=== PATIENT | female | born 1950 | race Caucasian/White ===

== ENCOUNTER 2016-07-31 09:43 | Outpatient (CLI) | payer MEDICARE, OTHER | END 2016-07-31 09:44 | disposition home or self-care (01) | DX: E11.9 Type 2 diabetes mellitus without complications (principal); D70.9 Neutropenia, unspecified; I10 Essential (primary) hypertension; E78.4 Other hyperlipidemia; N28.9 Disorder of kidney and ureter, unspecified; N05.9 Unspecified nephritic syndrome with unspecified morphologic changes; R80.9 Proteinuria, unspecified ==

== ENCOUNTER 2016-10-31 19:53 | Outpatient (CLI) | payer MEDICARE, OTHER | END 2016-10-31 19:54 | disposition home or self-care (01) | DX: N26.1 Atrophy of kidney (terminal) (principal) ==

== ENCOUNTER 2017-01-12 12:59 | Outpatient (CLI) | payer MEDICARE, OTHER ==
--- NOTE | 2017-01-15 17:59 | Mammography Report ---
DIGITAL SCREENING MAMMOGRAM: 01/12/2017 CLINICAL INDICATION: A 66-year-old for screening. COMPARISON: 08/2015, 02/2014, 01/2013, 11/2010 TECHNIQUE: Routine CC and MLO projections were obtained of the breasts. FINDINGS: The breasts again demonstrate heterogeneously dense fibroglandular parenchyma bilaterally. Coarse and punctate, typically benign calcifications are present. No suspicious masses, clustered microcalcifications, or regions of architectural distortion are identified. IMPRESSION: BENIGN FINDINGS. RECOMMENDATION: Routine annual screening unless otherwise clinically indicated. BIRADS CATEGORY 2 - BENIGN FINDINGS. STANDARD QUALIFYING STATEMENTS 1. This examination was reviewed with the aid of Computer-Aided Detection (CAD). 2. A negative or benign imaging report should not delay biopsy if clinically suspicious findings are present. Consider surgical consultation if warranted. More than 5% of cancers are not identified by i maging. 3. Dense breasts may obscure an underlying neoplasm. JOB #: [id number] EXT JOB #:[id number]
== END 2017-01-12 13:00 | disposition home or self-care (01) ==
LOC: DI 12:59
PROVIDERS: ATTEND Internal Medicine
DX: Z12.31 Encounter for screening mammogram for malignant neoplasm of breast (principal)
CPT/HCPCS: 77067

== ENCOUNTER 2017-05-22 10:21 | Outpatient (CLI) | payer MEDICARE, OTHER ==
[2017-05-22 18:05] LABS: BILIRUBIN,TOTAL 0.3 mg/dL (0.2-1.0); BUN - BLOOD UREA NITROGEN 26 mg/dL (6-20); CALCIUM 8.9 mg/dL (8.5-10.3); CARBON DIOXIDE - CO2 27 mmol/L (21-32); CHLORIDE 107 mmol/L (101-111); CHOL/HDL RATIO 3.4 (<4.4); CHOLESTEROL 146 mg/dL; CREATININE 1.3 mg/dL (0.4-1.0); GFR - MDRD 41 (>89); GLUCOSE 128 mg/dL (70-100); HDL CHOLESTEROL 43 mg/dL; LDL/HDL RATIO 1.8 (<4.4); POTASSIUM 4.2 mmol/L (3.5-5.0); SODIUM 140 mmol/L (135-145); TOTAL PROTEIN 6.8 g/dL (6.7-8.2); TRIGLYCERIDES 119 mg/dL; VLDL CHOLESTEROL 24 mg/dL
[2017-05-22 19:22] LABS: HEMOGLOBIN A1C 0.61 g/dL
== END 2017-05-22 10:22 | disposition home or self-care (01) ==
LOC: LAB.F 10:21
PROVIDERS: ATTEND Internal Medicine Interventional Cardiology
DX: E11.9 Type 2 diabetes mellitus without complications (principal); I25.2 Old myocardial infarction; E78.5 Hyperlipidemia, unspecified; E66.9 Obesity, unspecified; Z87.891 Personal history of nicotine dependence; N18.3 Chronic kidney disease, stage 3 (moderate); E78.4 Other hyperlipidemia; Z79.899 Other long term (current) drug therapy; I25.5 Ischemic cardiomyopathy; I12.9 Hypertensive chronic kidney disease with stage 1 through stage 4 chronic kidney disease, or unspecified chronic kidney disease
CPT/HCPCS: 36415; 80053; 80061; 82043; 83036

== ENCOUNTER 2017-10-19 12:27 | Emergency (ER) | payer MEDICARE, OTHER ==
--- NOTE | 2017-10-19 12:56 | ED Physician Documentation ---
History of Present Illness - Stated complaint Stated Complaint: ABN HEARTRATE - Chief complaint Chief Complaint: Cardiac - History obtained from History obtained from: Patient, Family (spouse), Other (PMD) - Additonal information Additional information: The patient is a 67-year-old female with history of type 2 diabetes, coronary artery disease with history of DC in 1997, and status post coronary stents 2, who presents for evaluation of ventricular bigeminy. 11 days ago while on vacation in [place] she was hospitalized for congestive heart failure. 4 days later, after being diuresed, she left AGAINST MEDICAL ADVICE in order to catch her prescheduled train ride home. She was seen by her primary physician this morning, and an EKG revealed ventricular bigeminy. The patient has been asymptomatic, without chest pain, shortness of breath, or lightheadedness. She denies history of similar symptoms in the past. Review of Systems Constitutional: denies: Fever Ears: denies: Tinnitus/ringing Nose: denies: Congestion Throat: denies: Sore throat Cardiac: denies: Chest pain / pressure Respiratory: denies: Dyspnea, Cough GI: denies: Abdominal Pain, Nausea, Vomiting : denies: Dysuria Skin: denies: Rash Musculoskeletal: denies: Extremity pain, Extremity swelling Neurologic: denies: Generalized weakness, Headache PD PAST MEDICAL HISTORY - Past Medical History Cardiovascular: Congestive heart failure, [place] Respiratory: None Endocrine/Autoimmune: Type 2 diabetes - Past Surgical History Cardiovascular: Coronary stent - Present Medications Home Medications: Ambulatory Orders Medication Instructions Recorded Confirmed Aspirin Chewable [St Tera 81 mg PO BID 01/06/14 04/25/16 Aspirin] Calcium Carbonate [Calcium] 1,200 mg PO DAILY 01/06/14 04/25/16 Carvedilol 12.5 mg PO BID 01/06/14 04/25/16 Cholecalciferol (Vitamin D3) 1,000 unit PO DAILY 01/06/14 04/25/16 [Vitamin D-3] Cyanocobalamin (Vitamin B-12) 1,000 mcg PO DAILY 01/06/14 04/25/16 [Vitamin B-12] Iron 65 mg PO DAILY 01/06/14 04/25/16 Lisinopril 20 mg PO BID 01/06/14 04/25/16 Metformin HCl 500 mg PO DAILY 01/06/14 04/25/16 Pravastatin Sodium 40 mg PO DAILY 01/06/14 04/25/16 glipiZIDE [Glucotrol] 5 mg PO DAILY 01/06/14 04/25/16 Colesevelam HCl [Welchol] 6 tab PO DAILY 04/14/14 04/25/16 Canagliflozin [Invokana] 100 mg PO DAILY 04/27/15 04/25/16 Colesevelam HCl [Welchol] 0.5 packet PO ONCE 04/25/16 04/25/16 - Allergies Allergies/Adverse Reactions: Allergies Allergy/AdvReac Type Severity Reaction Status Date / Time amoxicillin [Amoxicillin] Allergy Unknown Headache Unverified 10/19/17 12:41 amoxapine [Amoxapine] Allergy Headache Unverified 10/19/17 12:41 - Living Situation Living Situation: reports: With spouse/s.o. Living Arrangement: reports: At home - Social History Does the pt smoke?: No PD ED PE NORMAL - Vitals Vital signs reviewed: Yes (systolic hypertension) - General General: Alert and oriented X 3, Well developed/nourished - HEENT HEENT: Atraumatic, Moist mucous membranes, Pharynx benign - Neck Neck: No adenopathy, No JVD - Cardiac Cardiac: Other (ventricular bigeminy on reading interventionist. Faint, 1/6 systolic murmur.) - Respiratory Respiratory: No respiratory distress, Clear bilaterally - Abdomen Abdomen: Soft, Non tender - Back Back: No CVA TTP - Derm Derm: No rash - Extremities Extremities: No calf tenderness / cord, Other (Trace pedal edema.) - Neuro Neuro: Alert and oriented X 3, No motor deficit, Normal speech Results - Vitals Vitals: Vital Signs - 24 hr 10/19/17 10/19/17 10/19/17 12:38 12:48 14:02 Temperature 36.4 C L Heart Rate 89 97 Respiratory 22 23 Rate Blood Pressure 158/68 H 138/95 H Blood Pressure 150/66 H [Left] Blood Pressure 151/81 H [Right] O2 Saturation 97 96 10/19/17 10/19/17 14:27 14:42 Temperature Heart Rate 74 88 Respiratory 20 16 Rate Blood Pressure 148/68 H 146/68 H Blood Pressure [Left] Blood Pressure [Right] O2 Saturation 96 96 Oxygen O2 Source Room air - EKG (time done) 12:37 Rate: Rate (enter#) (90) Rhythm: LAE, Other (Ventricular bigeminy) [place]: Normal Ischemia: T wave inversion (Diffuse T-wave inversions: II, III, aVF, V3-V6.) Compare to prior EKG: Old EKG unavailable - Labs Labs: Laboratory Tests 10/19/17 10/19/17 10/19/17 12:34 12:34 12:34 WBC 5.1 RBC 3.93 L Hgb 12.7 Hct 37.6 MCV 95.5 MCH 32.2 H MCHC 33.7 RDW 15.0 Plt Count 212 MPV 8.5 Neut # 3.1 Lymph # 1.1 L Jack # 0.6 Eos # 0.3 Baso # 0.0 Absolute Nucleated RBC 0.00 Nucleated RBC % 0.1 Sodium 141 Potassium 4.3 Chloride 106 Carbon Dioxide 29 Anion Gap 6.0 BUN 28 H Creatinine 1.2 H Estimated GFR (MDRD) 45 L Glucose 91 Calcium 9.9 Magnesium Total Bilirubin 0.4 AST 19 ALT 18 Alkaline Phosphatase 44 Troponin I 0.04 B-Natriuretic Peptide Total Protein 7.2 Albumin 3.5 Globulin 3.7 Albumin/Globulin Ratio 0.9 L Lipase 43 10/19/17 10/19/17 12:34 12:34 WBC RBC Hgb Hct MCV MCH MCHC RDW Plt Count MPV Neut # Lymph # Jack # Eos # Baso # Absolute Nucleated RBC Nucleated RBC % Sodium Potassium Chloride Carbon Dioxide Anion Gap BUN Creatinine Estimated GFR (MDRD) Glucose Calcium Magnesium 1.8 Total Bilirubin AST ALT Alkaline Phosphatase Troponin I B-Natriuretic Peptide 1111 H Total Protein Albumin Globulin Albumin/Globulin Ratio Lipase - Rads (name of study) CXR Radiology: Prelim report reviewed, EMP read contemporaneously, See rad report ( Large heart. Clear lungs.) PD MEDICAL DECISION MAKING - ED course Complexity details: reviewed old records, reviewed results, re-evaluated patient , considered differential, d/w patient, d/w family, d/w business solutions consultant ED course: The patient's presentation is significant for asymptomatic ventricular bigeminy. Lab results reveal normal electrolytes with a potassium of 4.3 and magnesium 1.8. Her troponin is normal at less than 0.04. BNP is elevated at 1111, but the patient denies shortness of breath, has no JVD, has no rales on auscultation, has trace pedal edema which is far improved from when she was hospitalized with congestive heart failure, and chest x-ray reveals clear lungs. Clinically, she does not appear to be in congestive heart failure. I discussed her condition with Dr. Soler, child welfare manager cotton breeder for Dr. Garvin, and he recommends scheduling outpatient follow-up with Dr. Garvin. I contacted the scheduling office, and the patient was given an appointment for next week, October 25 at 10 AM. Records from the hospital in [place] were requested, but were not received by the time of the patient's discharge. I discussed with her and her the results of her workup, the discussion with the child welfare manager, the outpatient follow-up appointment, as well as potentially worrisome signs or symptoms that should prompt reevaluation in the emergency department. Departure - Departure Disposition: 01 Home, Self Care Clinical Impression: Ventricular bigeminy Condition: Stable Instructions: ED Dysrhythmia Unspecified Follow-Up: Keli Alaniz MD [Primary Care Provider] - [facility] - Card [Provider Group] Comments: Continue your currently prescribed medications. Follow up with Dr. Garvin at his next available appointment. Return to the emergency department if you develop chest pain, shortness of breath, lightheadedness, or otherwise worsening symptoms. Discharge Date/Time: 10/19/17 14:42
[2017-10-19 13:08] LABS: BASOPHILS % (AUTO) 0.7 %; EOSINOPHILS # (AUTO) 0.3 10^3/uL (0.0-0.7); EOSINOPHILS % (AUTO) 6.6 %; HGB - HEMOGLOBIN 12.7 g/dL (12.0-16.0); LYMPHOCYTES # (AUTO) 1.1 10^3/uL (1.5-3.5); LYMPHOCYTES % (AUTO) 20.9 %; MEAN CORPUSCULAR HEMOGLOBIN 32.2 pg (27.0-31.0); MEAN CORPUSCULAR HGB CONC 33.7 g/dL (32.0-36.0); MEAN CORPUSCULAR VOLUME 95.5 fL (81.0-99.0); MEAN PLATELET VOLUME 8.5 fL (7.9-10.8); MONOCYTES # (AUTO) 0.6 10^3/uL (0.0-1.0); MONOCYTES % (AUTO) 11.7 %; NEUTROPHILS # (AUTO) 3.1 10^3/uL (1.5-6.6); NEUTROPHILS % (AUTO) 60.1 %; PLT - PLATELET COUNT 212 10^3/uL (130-450); RED BLOOD COUNT 3.93 10^6/uL (4.20-5.40); WHITE BLOOD COUNT 5.1 x10^3/uL (4.8-10.8)
[2017-10-19 13:17] LABS: ALBUMIN 3.5 g/dL (3.2-5.5); ALBUMIN/GLOBULIN RATIO 0.9 (1.0-2.2); BILIRUBIN,TOTAL 0.4 mg/dL (0.2-1.0); CALCIUM 9.9 mg/dL (8.5-10.3); CREATININE 1.2 mg/dL (0.4-1.0); TOTAL PROTEIN 7.2 g/dL (6.7-8.2)
--- NOTE | 2017-10-19 13:26 | XRAY Report ---
EXAM: CHEST RADIOGRAPHY EXAM DATE: 10/19/2017 01:20 PM. CLINICAL HISTORY: Bigeminy; recent hospitalization for CHF. COMPARISON: None. TECHNIQUE: 1 view. FINDINGS: Lungs/Pleura: No focal opacities evident. No pleural effusion. No pneumothorax. Mediastinum: Large chart some of which is due to the AP portable technique. Other: None. IMPRESSION: Large heart. Clear lungs. [facility] Referring Provider Line: [phone] SITE ID: [id number]
[2017-10-19 14:45] VITALS: BP 146/68
== END 2017-10-19 14:42 | disposition home or self-care (01) ==
LOC: ED 12:27
DX: I49.3 Ventricular premature depolarization (principal); I50.9 Heart failure, unspecified; I25.2 Old myocardial infarction; E11.9 Type 2 diabetes mellitus without complications; Z79.82 Long term (current) use of aspirin; Z79.84 Long term (current) use of oral hypoglycemic drugs
CPT/HCPCS: 36415; 71045; 80053; 83690; 83735; 83880; 84484; 85025; 93005; 99284

== ENCOUNTER 2017-11-26 08:53 | Outpatient (CLI) | payer MEDICARE, OTHER ==
[2017-11-26 12:10] LABS: CALCIUM 8.4 mg/dL (8.5-10.3); CREATININE 1.7 mg/dL (0.4-1.0); MAGNESIUM 2.2 mg/dL (1.7-2.8)
== END 2017-11-26 08:54 | disposition home or self-care (01) ==
LOC: LAB.F 08:53
PROVIDERS: ATTEND Internal Medicine
DX: E11.9 Type 2 diabetes mellitus without complications (principal); I10 Essential (primary) hypertension; E78.4 Other hyperlipidemia
CPT/HCPCS: 36415; 80048; 83735; 83880; 84443

== ENCOUNTER 2018-05-09 11:59 | Outpatient (CLI) | payer MEDICARE, OTHER ==
[2018-05-09 18:24] LABS: BUN - BLOOD UREA NITROGEN 65 mg/dL (6-20); CALCIUM 9.3 mg/dL (8.5-10.3); CARBON DIOXIDE - CO2 30 mmol/L (21-32); CHLORIDE 99 mmol/L (101-111); CHOL/HDL RATIO 3.8 (<4.4); CHOLESTEROL 160 mg/dL; CREATININE 2.2 mg/dL (0.4-1.0); GFR - MDRD 22 (>89); GLUCOSE 133 mg/dL (70-100); HDL CHOLESTEROL 42 mg/dL; LDL CHOLESTEROL,CALCULATED 81 mg/dL; LDL/HDL RATIO 1.9 (<4.4); SODIUM 139 mmol/L (135-145); VLDL CHOLESTEROL 37 mg/dL
== END 2018-05-09 23:59 | disposition home or self-care (01) ==
LOC: LAB.F 11:59
PROVIDERS: ATTEND Internal Medicine Interventional Cardiology
DX: I10 Essential (primary) hypertension (principal); I50.42 Chronic combined systolic (congestive) and diastolic (congestive) heart failure; I25.2 Old myocardial infarction; E11.9 Type 2 diabetes mellitus without complications
CPT/HCPCS: 36415; 80048; 80061; 83721; 83880

== ENCOUNTER 2018-05-09 20:29 | Emergency (ER) | payer MEDICARE, OTHER ==
[2018-05-09 20:36] VITALS: BP 129/68
--- NOTE | 2018-05-09 20:45 | ED Physician Documentation ---
PD HPI LOWER EXT INJURY - Stated complaint Stated Complaint: FALL/STAIRS - Chief complaint Chief Complaint: Ext Problem - History obtained from History obtained from: Patient, Family - History of Present Illness PD HPI LOW EXT INJURY LOCATION: Left, Ankle Type of injury: Fall Where injury occurred: Home Timing - onset: Today Timing - duration: Minutes Timing - details: Abrupt onset, Still present Improved by: Rest, Immobilization Worsened by: Moving, Palpating Associated symptoms: Swelling. No: Weakness, Numbness Contributing factors: No: Anticoagulated Similar symptoms before: Has not had sx before Recently seen: Not recently seen - Additional information Additional information: 67-year-old female with a history of coronary artery disease and chronic renal failure has fallen while she was walking down some steps. She was walking down steps outside her house and tripped falling onto her outstretched hands. She has some mild pain in the palm of her right hand and she is not able to bear weight on her left ankle. She states that immediately she felt the pain to her left ankle as the central feature of her fall. She otherwise did not injure herself. Review of Systems Constitutional: denies: Fever Eyes: denies: Decreased vision Ears: denies: Ear pain Nose: denies: Congestion Respiratory: denies: Cough GI: denies: Nausea, Vomiting : denies: Dysuria, Frequency Musculoskeletal: reports: Extremity pain, Joint pain, Joint swelling, Pain with weight bearing. denies: Neck pain, Back pain Neurologic: denies: Generalized weakness, Focal weakness, Numbness PD PAST MEDICAL HISTORY - Past Medical History Cardiovascular: Congestive heart failure, [place] Respiratory: None Endocrine/Autoimmune: Type 2 diabetes - Past Surgical History Past Surgical History: Yes Cardiovascular: Coronary stent - Present Medications Home Medications: Ambulatory Orders Medication Instructions Recorded Confirmed Aspirin Chewable [St Tera 81 mg PO BID 01/06/14 04/25/16 Aspirin] Carvedilol 12.5 mg PO BID 01/06/14 04/25/16 Cholecalciferol (Vitamin D3) 1,000 unit PO DAILY 01/06/14 04/25/16 [Vitamin D-3] Cyanocobalamin (Vitamin B-12) 1,000 mcg PO DAILY 01/06/14 04/25/16 [Vitamin B-12] Iron 65 mg PO DAILY 01/06/14 04/25/16 Lisinopril 20 mg PO BID 01/06/14 04/25/16 Metformin HCl 500 mg PO DAILY 01/06/14 04/25/16 Pravastatin Sodium 40 mg PO DAILY 01/06/14 04/25/16 glipiZIDE [Glucotrol] 5 mg PO DAILY 01/06/14 04/25/16 Colesevelam HCl [Welchol] 0.5 packet PO ONCE 04/25/16 04/25/16 Furosemide [Lasix] 20 mg PO DAILY 05/09/18 05/09/18 - Allergies Allergies/Adverse Reactions: Allergies Allergy/AdvReac Type Severity Reaction Status Date / Time amoxicillin [Amoxicillin] Allergy Unknown Headache Unverified 05/09/18 20:35 amoxapine [Amoxapine] Allergy Headache Unverified 05/09/18 20:35 - Social History Does the pt smoke?: No Smoking Status: Never smoker Does the pt drink ETOH?: No Does the pt have substance abuse?: No - Immunizations Immunizations are current?: Yes PD ED PE NORMAL - Vitals Vital signs reviewed: Yes (normal ) - General General: Alert and oriented X 3, No acute distress, Well developed/nourished - HEENT HEENT: Atraumatic, PERRL, EOMI - Respiratory Respiratory: No respiratory distress - Derm Derm: Normal color, Warm and dry, No rash - Extremities Extremities: No deformity, Other (There is an abrasion to the right palm over the proximal 1st MC. There is full unrestricted movement to the wrist without pain and pain only to direct palpation of the proximal MC. distal n/v intact. The left ankle is with pain to palpation of the lateral malleolus and not to the proximal 5th. The distal n/v is intact. ) - Neuro Neuro: Alert and oriented X 3, pension agent 2-12 intact, No motor deficit, No sensory deficit, Normal speech Eye Opening: Spontaneous Motor: Obeys Commands Verbal: Oriented GCS Score: 15 - Psych Psych: Normal mood, Normal affect Results - Vitals Vitals: Vital Signs - 24 hr 05/09/18 20:32 Temperature 36.1 C L Heart Rate 85 Respiratory 18 Rate Blood Pressure 129/68 O2 Saturation 98 Oxygen O2 Source Room air - Rads (name of study) left ankle Radiology: Prelim report reviewed (Impression: Nondisplaced oblique distal fibular shaft fracture.), EMP read indepedently, See rad report PD MEDICAL DECISION MAKING - ED course Complexity details: considered differential, d/w patient, d/w family ED course: 67-year-old female with a fall down 4 steps has injured her left ankle has some swelling and tenderness over the talofibular ligament and lateral malleolus and x-rays obtained. She is otherwise without evidence of injury from this fall and appears well without obvious injury. X-ray examination reveals a nondisplaced distal fibular shaft fracture and the patient is placed into a posterior splint and onto crutches to be nonweightbearing until follow-up with orthopedics. Departure - Departure Disposition: 01 Home, Self Care Clinical Impression: Closed fracture of left distal fibula Qualifiers: Encounter type: initial encounter Fracture morphology: other fracture Qualified Code(s): S82.832A - Other fracture of upper and lower end of left fibula, initial encounter for closed fracture Condition: Stable Instructions: ED Fx Lower Ext Follow-Up: Keli Alaniz MD [Primary Care Provider] - [facility] [Provider Group]
--- NOTE | 2018-05-09 21:24 | XRAY Report ---
Reason: fall lateral pain Procedure Date: 05/09/2018 Accession Number: [id number] / [id number] Procedure: XR - Ankle 3 View LT CPT Code: FULL RESULT: EXAM: LEFT ANKLE RADIOGRAPHY EXAM DATE: 05/09/2018 09:00 PM. CLINICAL HISTORY: Fall lateral pain. COMPARISON: None. TECHNIQUE: 3 views. FINDINGS: Bones: There is a nondisplaced oblique distal fibular fracture. No other fracture seen. Joints: Normal. No effusion. No subluxations. The ankle mortise is normally aligned. Soft Tissues: There is mild periarticular soft tissue swelling. IMPRESSION: Nondisplaced oblique distal fibular shaft fracture. [facility]
[2018-05-09] MEDS ORDERED: HYDROcod/ACET 5/325 Prepack 4 PO STA (21:35)
== END 2018-05-09 21:51 | disposition home or self-care (01) ==
LOC: ED 20:29
DX: S82.435A Nondisplaced oblique fracture of shaft of left fibula, initial encounter for closed fracture (principal); I50.9 Heart failure, unspecified; E11.9 Type 2 diabetes mellitus without complications; Z79.82 Long term (current) use of aspirin; Z79.84 Long term (current) use of oral hypoglycemic drugs; Y92.008 Other place in unspecified non-institutional (private) residence as the place of occurrence of the external cause; W10.9XXA Fall (on) (from) unspecified stairs and steps, initial encounter; I25.2 Old myocardial infarction; I50.42 Chronic combined systolic (congestive) and diastolic (congestive) heart failure
CPT/HCPCS: 36415; 80048; 80061; 83880; 99283

== ENCOUNTER 2018-05-29 10:41 | Outpatient (CLI) | payer MEDICARE, OTHER ==
[2018-05-29 17:56] LABS: BASOPHILS % (AUTO) 0.7 %; EOSINOPHILS # (AUTO) 0.2 10^3/uL (0.0-0.7); EOSINOPHILS % (AUTO) 3.9 %; HGB - HEMOGLOBIN 11.8 g/dL (12.0-16.0); LYMPHOCYTES # (AUTO) 1.2 10^3/uL (1.5-3.5); LYMPHOCYTES % (AUTO) 24.4 %; MEAN CORPUSCULAR HEMOGLOBIN 31.3 pg (27.0-31.0); MEAN CORPUSCULAR HGB CONC 32.6 g/dL (32.0-36.0); MEAN CORPUSCULAR VOLUME 96.1 fL (81.0-99.0); MEAN PLATELET VOLUME 8.9 fL (7.9-10.8); MONOCYTES # (AUTO) 0.5 10^3/uL (0.0-1.0); MONOCYTES % (AUTO) 10.3 %; NEUTROPHILS # (AUTO) 2.9 10^3/uL (1.5-6.6); NEUTROPHILS % (AUTO) 60.7 %; PLT - PLATELET COUNT 217 10^3/uL (130-450); RED BLOOD COUNT 3.78 10^6/uL (4.20-5.40); RED CELL DISTRIBUTION WIDTH 14.1 % (12.0-15.0); WHITE BLOOD COUNT 4.7 x10^3/uL (4.8-10.8)
[2018-05-29 17:59] LABS: BILIRUBIN,URINE NEGATIVE (NEGATIVE); GLUCOSE, URINE (UA) NEGATIVE (NEGATIVE); KETONES,URINE (UA) NEGATIVE (NEGATIVE); LEUKOCYTE ESTERASE, URINE NEGATIVE (NEGATIVE); NITRITE,URINE NEGATIVE (NEGATIVE); OCCULT BLOOD,URINE NEGATIVE (NEGATIVE); PH,URINE 5.5 PH (5.0-7.5); PROTEIN,URINE NEGATIVE (NEGATIVE); UROBILINOGEN,URINE 0.2 (NORMAL) E.U./dL (NORMAL)
[2018-05-29 18:07] LABS: ALBUMIN 3.6 g/dL (3.2-5.5); CALCIUM 9.5 mg/dL (8.5-10.3); CREATININE 1.5 mg/dL (0.4-1.0); PHOSPHORUS 3.6 mg/dL (2.5-4.6)
[2018-05-29 18:13] LABS: BACTERIA,URINE None Seen /HPF (None Seen); CLARITY,URINE CLEAR (CLEAR); RBC,URINE None Seen /HPF (0-5); SQUAMOUS EPITHELIAL CELL,UR RARE Squamous (<= Few)
[2018-05-29 18:55] LABS: CREATININE,URINE 23.4 mg/dL
[2018-05-29 18:56] LABS: MICROALBUMIN,URINE < 0.2 mg/dL (0-300.0)
== END 2018-05-29 10:42 | disposition home or self-care (01) ==
LOC: LAB.F 10:41
PROVIDERS: ATTEND Internal Medicine Nephrology
DX: N18.3 Chronic kidney disease, stage 3 (moderate) (principal)
CPT/HCPCS: 36415; 80069; 81001; 81599; 82043; 82570; 83883; 84156; 84166; 85025; 87086

== ENCOUNTER 2018-10-08 10:01 | Outpatient (CLI) | payer MEDICARE, OTHER ==
[2018-10-08 17:51] LABS: BUN - BLOOD UREA NITROGEN 38 mg/dL (6-20); CALCIUM 9.1 mg/dL (8.5-10.3); CARBON DIOXIDE - CO2 29 mmol/L (21-32); CHLORIDE 106 mmol/L (101-111); CHOLESTEROL 194 mg/dL; CREATININE 1.3 mg/dL (0.4-1.0); GFR - MDRD 40 (>89); GLUCOSE 156 mg/dL (70-100); HDL CHOLESTEROL 39 mg/dL; LDL CHOLESTEROL,CALCULATED 136 mg/dL; LDL/HDL RATIO 3.5 (<4.4); SODIUM 141 mmol/L (135-145); VLDL CHOLESTEROL 19 mg/dL
== END 2018-10-08 10:02 | disposition home or self-care (01) ==
LOC: LAB.F 10:01
PROVIDERS: ATTEND Internal Medicine Interventional Cardiology
DX: I25.2 Old myocardial infarction (principal)
CPT/HCPCS: 36415; 80048; 80061; 83721

== ENCOUNTER 2018-12-17 09:15 | Outpatient (CLI) | payer MEDICARE, OTHER ==
[2018-12-17 17:30] LABS: BILIRUBIN,URINE NEGATIVE (NEGATIVE); GLUCOSE, URINE (UA) NEGATIVE (NEGATIVE); KETONES,URINE (UA) NEGATIVE (NEGATIVE); LEUKOCYTE ESTERASE, URINE NEGATIVE (NEGATIVE); NITRITE,URINE NEGATIVE (NEGATIVE); OCCULT BLOOD,URINE NEGATIVE (NEGATIVE); PH,URINE 5.5 PH (5.0-7.5); PROTEIN,URINE NEGATIVE (NEGATIVE); UROBILINOGEN,URINE 0.2 (NORMAL) E.U./dL (NORMAL)
[2018-12-17 17:38] LABS: ALBUMIN 3.5 g/dL (3.2-5.5); ALBUMIN/GLOBULIN RATIO 0.9 (1.0-2.2); ALKALINE PHOSPHATASE 48 IU/L (42-121); ALT ALANINE AMINOTRANSFERASE 17 IU/L (10-60); AST ASPARTATE AMINOTRANSFERASE 20 IU/L (10-42); BILIRUBIN,TOTAL 0.4 mg/dL (0.2-1.0); BUN - BLOOD UREA NITROGEN 32 mg/dL (6-20); CALCIUM 9.6 mg/dL (8.5-10.3); CARBON DIOXIDE - CO2 26 mmol/L (21-32); CHLORIDE 104 mmol/L (101-111); CHOL/HDL RATIO 3.5 (<4.4); CHOLESTEROL 159 mg/dL; CREATININE 1.4 mg/dL (0.4-1.0); GFR - MDRD 37 (>89); GLUCOSE 156 mg/dL (70-100); HDL CHOLESTEROL 45 mg/dL; LDL CHOLESTEROL,CALCULATED 82 mg/dL; LDL/HDL RATIO 1.8 (<4.4); MAGNESIUM 2.1 mg/dL (1.7-2.8); SODIUM 141 mmol/L (135-145); TOTAL PROTEIN 7.2 g/dL (6.7-8.2); VLDL CHOLESTEROL 32 mg/dL
[2018-12-17 17:39] LABS: CREATININE,URINE 159.8 mg/dL; MICROALBUM/CREATININE RATIO,UR 8.8 ug/mg (<30.0); MICROALBUMIN,URINE 1.4 mg/dL (0-300.0)
[2018-12-17 17:42] LABS: BASOPHILS % (AUTO) 0.7 %; EOSINOPHILS # (AUTO) 0.2 10^3/uL (0.0-0.7); EOSINOPHILS % (AUTO) 5.2 %; HGB - HEMOGLOBIN 11.9 g/dL (12.0-16.0); LYMPHOCYTES # (AUTO) 0.8 10^3/uL (1.5-3.5); LYMPHOCYTES % (AUTO) 19.4 %; MEAN CORPUSCULAR HGB CONC 32.8 g/dL (32.0-36.0); MEAN CORPUSCULAR VOLUME 94.5 fL (81.0-99.0); MEAN PLATELET VOLUME 9.1 fL (7.9-10.8); MONOCYTES # (AUTO) 0.5 10^3/uL (0.0-1.0); MONOCYTES % (AUTO) 11.2 %; NEUTROPHILS # (AUTO) 2.7 10^3/uL (1.5-6.6); NEUTROPHILS % (AUTO) 63.5 %; PLT - PLATELET COUNT 202 10^3/uL (130-450); RED BLOOD COUNT 3.84 10^6/uL (4.20-5.40); WHITE BLOOD COUNT 4.2 x10^3/uL (4.8-10.8)
[2018-12-17 17:45] LABS: CLARITY,URINE CLEAR (CLEAR)
== END 2018-12-17 09:16 | disposition home or self-care (01) ==
LOC: LAB.F 09:15
PROVIDERS: ATTEND Internal Medicine
DX: E11.9 Type 2 diabetes mellitus without complications (principal); I10 Essential (primary) hypertension; D50.9 Iron deficiency anemia, unspecified; E78.5 Hyperlipidemia, unspecified; N28.9 Disorder of kidney and ureter, unspecified; Z79.899 Other long term (current) drug therapy; E66.8 Other obesity
CPT/HCPCS: 36415; 80053; 80061; 81001; 81003; 82043; 82570; 83721; 83735; 84443; 85025

== ENCOUNTER 2019-03-14 18:27 | Outpatient (CLI) | payer MEDICARE, OTHER ==
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
== END 2019-03-14 18:28 | disposition home or self-care (01) ==
LOC: DI 18:27
PROVIDERS: ATTEND Internal Medicine
DX: G44.319 Acute post-traumatic headache, not intractable (principal); I67.2 Cerebral atherosclerosis
CPT/HCPCS: 70450

== ENCOUNTER 2019-04-11 13:56 | Outpatient (CLI) | payer MEDICARE, OTHER ==
--- NOTE | 2019-04-11 16:02 | Mammography Report ---
Reason: ROUTINE MAMMO Procedure Date: 04/11/2019 Accession Number: [id number] / [id number] Procedure: MGS - Screening Mammo Dig Bilat CPT Code: FULL RESULT: EXAM: Screening Mammo Dig Bilat DATE: 04/11/2019 2:16 PM CLINICAL HISTORY: Screening TECHNIQUE: (B) - Bilateral CC and MLO views were obtained. COMPARISON: 01/12/2017, 08/16/2015, 03/04/2014 PARENCHYMAL PATTERN: (A) - The breasts demonstrate scattered fibroglandular densities bilaterally. FINDINGS: There is possible architectural distortion upper outer quadrant central left breast, posterior one third. In addition, there are loosely grouped indeterminate microcalcifications within this region. Otherwise, no suspicious abnormality in either breast. IMPRESSION: Incomplete examination. BI-RADS category 0. RECOMMENDATION: (ADDMU) - Additional views using both Mammography and Ultrasound recommended. Recommend left 3-D mammography, magnification left breast views, and targeted left breast ultrasound. BI-RADS CATEGORY: (0) - Incomplete Examination - need additional evaluation. STANDARD QUALIFYING STATEMENTS: 1. This examination was reviewed with the aid of Computer-Aided Detection (CAD). 2. A negative or benign imaging report should not preclude biopsy if clinically suspicious findings are present. 3. Dense breasts may obscure an underlying neoplasm. 4. This examination was reviewed without the aid of 3D breast imaging (tomosynthesis).
== END 2019-04-11 13:57 | disposition home or self-care (01) ==
LOC: DI.S 13:56
PROVIDERS: ATTEND Internal Medicine
DX: Z12.31 Encounter for screening mammogram for malignant neoplasm of breast (principal)
CPT/HCPCS: 77067

== ENCOUNTER 2019-05-08 10:06 | Outpatient (CLI) | payer MEDICARE, OTHER ==
[2019-05-08 17:40] LABS: BASOPHILS % (AUTO) 0.6 %; EOSINOPHILS # (AUTO) 0.2 10^3/uL (0.0-0.7); HGB - HEMOGLOBIN 10.8 g/dL (12.0-16.0); LYMPHOCYTES % (AUTO) 19.4 %; MEAN CORPUSCULAR HEMOGLOBIN 29.9 pg (27.0-31.0); MEAN CORPUSCULAR HGB CONC 30.2 g/dL (32.0-36.0); MEAN CORPUSCULAR VOLUME 99.2 fL (81.0-99.0); MEAN PLATELET VOLUME 10.7 fL (7.9-10.8); MONOCYTES # (AUTO) 0.6 10^3/uL (0.0-1.0); MONOCYTES % (AUTO) 11.7 %; NEUTROPHILS # (AUTO) 3.2 10^3/uL (1.5-6.6); NEUTROPHILS % (AUTO) 63.9 %; PLT - PLATELET COUNT 215 10^3/uL (130-450); RED BLOOD COUNT 3.61 10^6/uL (4.20-5.40); RED CELL DISTRIBUTION WIDTH 13.3 % (12.0-15.0); WHITE BLOOD COUNT 4.9 x10^3/uL (4.8-10.8)
[2019-05-08 18:02] LABS: HB2 TOTAL 11.5 g/dL; HEMOGLOBIN A1C 0.71 g/dL; HEMOGLOBIN A1C % 7.8 % (4.6-6.2)
[2019-05-08 18:05] LABS: ALBUMIN 3.4 g/dL (3.2-5.5); ALKALINE PHOSPHATASE 55 IU/L (42-121); ALT ALANINE AMINOTRANSFERASE 19 IU/L (10-60); AST ASPARTATE AMINOTRANSFERASE 20 IU/L (10-42); BILIRUBIN,TOTAL 0.7 mg/dL (0.2-1.0); BUN - BLOOD UREA NITROGEN 23 mg/dL (6-20); CARBON DIOXIDE - CO2 27 mmol/L (21-32); CHLORIDE 108 mmol/L (101-111); CHOL/HDL RATIO 3.6 (<4.4); CHOLESTEROL 155 mg/dL; CREATININE 1.2 mg/dL (0.4-1.0); GFR - MDRD 44 (>89); GLUCOSE 155 mg/dL (70-100); HDL CHOLESTEROL 43 mg/dL; LDL CHOLESTEROL,CALCULATED 74 mg/dL; LDL/HDL RATIO 1.7 (<4.4); SODIUM 141 mmol/L (135-145); TOTAL PROTEIN 6.9 g/dL (6.7-8.2); VLDL CHOLESTEROL 38 mg/dL
== END 2019-05-08 10:07 | disposition home or self-care (01) ==
LOC: LAB.S 10:06
PROVIDERS: ATTEND Internal Medicine
DX: E11.9 Type 2 diabetes mellitus without complications (principal); I50.9 Heart failure, unspecified; I11.0 Hypertensive heart disease with heart failure; E78.5 Hyperlipidemia, unspecified; D50.9 Iron deficiency anemia, unspecified
CPT/HCPCS: 36415; 80053; 80061; 83036; 83721; 83880; 84443; 85025; 85651

== ENCOUNTER 2019-05-24 12:08 | Emergency (ER) | payer MEDICARE, OTHER ==
[2019-05-24] MEDS ORDERED: oxyCODONE 5 MG TABLET PO STA (12:36)
[2019-05-24] MEDS ORDERED: CHERRY SYRUP 10 ML UDC PO ONE (12:36)
[2019-05-24] MEDS ORDERED: CYCLOBENZAPRINE 10 MG TABLET PO STA (12:36)
[2019-05-24] MEDS ORDERED: DEXAMETHASONE 10 MG/ML VIAL PO STA (12:36)
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
[2019-05-24 14:13] VITALS: BP 116/60
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
== END 2019-05-24 14:19 | disposition home or self-care (01) ==
LOC: ED 12:08
DX: M62.830 Muscle spasm of back (principal); E11.9 Type 2 diabetes mellitus without complications; Z79.84 Long term (current) use of oral hypoglycemic drugs
CPT/HCPCS: 72100; 99284; A9270

== ENCOUNTER 2019-06-14 09:02 | Outpatient (CLI) | payer MEDICARE, OTHER | END 2019-06-14 09:03 | disposition home or self-care (01) | LOC: DI 09:02 | PROVIDERS: ATTEND Internal Medicine | DX: Z53.9 Procedure and treatment not carried out, unspecified reason (principal) ==

== ENCOUNTER 2020-01-20 11:25 | Outpatient (CLI) | payer MEDICARE, OTHER ==
[2020-01-20 15:38] LABS: BASOPHILS % (AUTO) 0.7 %; EOSINOPHILS # (AUTO) 0.2 10^3/uL (0.0-0.7); EOSINOPHILS % (AUTO) 4.3 %; HGB - HEMOGLOBIN 11.1 g/dL (12.0-16.0); LYMPHOCYTES % (AUTO) 21.7 %; MEAN CORPUSCULAR HEMOGLOBIN 29.2 pg (27.0-31.0); MEAN CORPUSCULAR HGB CONC 30.6 g/dL (32.0-36.0); MEAN CORPUSCULAR VOLUME 95.5 fL (81.0-99.0); MEAN PLATELET VOLUME 10.6 fL (7.9-10.8); MONOCYTES # (AUTO) 0.5 10^3/uL (0.0-1.0); NEUTROPHILS # (AUTO) 2.7 10^3/uL (1.5-6.6); NEUTROPHILS % (AUTO) 61.1 %; PLT - PLATELET COUNT 255 10^3/uL (130-450); RED CELL DISTRIBUTION WIDTH 14.8 % (12.0-15.0); WHITE BLOOD COUNT 4.4 x10^3/uL (4.8-10.8)
[2020-01-20 15:55] LABS: ALBUMIN 3.2 g/dL (3.2-5.5); ALBUMIN/GLOBULIN RATIO 0.8 (1.0-2.2); ALKALINE PHOSPHATASE 65 IU/L (42-121); ALT ALANINE AMINOTRANSFERASE 20 IU/L (10-60); AST ASPARTATE AMINOTRANSFERASE 21 IU/L (10-42); BILIRUBIN,TOTAL 0.3 mg/dL (0.2-1.0); BUN - BLOOD UREA NITROGEN 18 mg/dL (6-20); CALCIUM 9.2 mg/dL (8.5-10.3); CARBON DIOXIDE - CO2 27 mmol/L (21-32); CHLORIDE 106 mmol/L (101-111); CHOL/HDL RATIO 2.7 (<4.4); CHOLESTEROL 111 mg/dL; CREATININE 1.1 mg/dL (0.4-1.0); GLUCOSE 133 mg/dL (70-100); HDL CHOLESTEROL 41 mg/dL; LDL CHOLESTEROL,CALCULATED 49 mg/dL; LDL/HDL RATIO 1.2 (<4.4); SODIUM 140 mmol/L (135-145); TOTAL PROTEIN 7.2 g/dL (6.7-8.2); VLDL CHOLESTEROL 21 mg/dL
== END 2020-01-20 11:26 | disposition home or self-care (01) ==
LOC: LAB.S 11:25
PROVIDERS: ATTEND Internal Medicine
DX: E78.5 Hyperlipidemia, unspecified (principal); E11.9 Type 2 diabetes mellitus without complications; I11.0 Hypertensive heart disease with heart failure; I50.9 Heart failure, unspecified; Z79.899 Other long term (current) drug therapy; N28.9 Disorder of kidney and ureter, unspecified
CPT/HCPCS: 36415; 80053; 80061; 83721; 84443; 85025; 85651

== ENCOUNTER 2020-10-07 09:54 | Outpatient (CLI) | payer MEDICARE, OTHER ==
[2020-10-07 15:16] LABS: BUN - BLOOD UREA NITROGEN 28 mg/dL (6-20); CALCIUM 9.3 mg/dL (8.5-10.3); CARBON DIOXIDE - CO2 26 mmol/L (21-32); CHLORIDE 107 mmol/L (101-111); CHOL/HDL RATIO 3.3 (<4.4); CHOLESTEROL 130 mg/dL; CREATININE 1.1 mg/dL (0.4-1.0); GFR - MDRD 49 (>89); GLUCOSE 167 mg/dL (70-100); HDL CHOLESTEROL 39 mg/dL; LDL CHOLESTEROL,CALCULATED 64 mg/dL; LDL/HDL RATIO 1.6 (<4.4); POTASSIUM 4.2 mmol/L (3.5-5.0); SODIUM 140 mmol/L (135-145); TRIGLYCERIDES 134 mg/dL; VLDL CHOLESTEROL 27 mg/dL
[2020-10-07 20:22] LABS: ESTIMATED AVERAGE GLUCOSE 166 mg/dL (70-100); HEMOGLOBIN A1c% 7.4 % (4.27-6.07)
== END 2020-10-07 09:55 | disposition home or self-care (01) ==
LOC: LAB.S 09:54
PROVIDERS: ATTEND Internal Medicine Interventional Cardiology
DX: I25.2 Old myocardial infarction (principal); E78.5 Hyperlipidemia, unspecified; E11.9 Type 2 diabetes mellitus without complications
CPT/HCPCS: 36415; 80048; 80061; 83036; 83721

== ENCOUNTER 2021-01-06 09:02 | Outpatient (CLI) | payer MEDICARE, OTHER | END 2021-01-06 09:03 | disposition home or self-care (01) | LOC: DI 09:02 | PROVIDERS: ATTEND Internal Medicine Interventional Cardiology | DX: I48.92 Unspecified atrial flutter (principal); I51.7 Cardiomegaly; I31.3 Pericardial effusion (noninflammatory); I28.1 Aneurysm of pulmonary artery | CPT/HCPCS: 93306 ==

== ENCOUNTER 2021-03-08 10:08 | Outpatient (CLI) | payer MEDICARE, OTHER ==
[2021-03-08 15:11] LABS: BASOPHILS % (AUTO) 0.4 %; EOSINOPHILS # (AUTO) 0.2 10^3/uL (0.0-0.7); HCT - HEMATOCRIT 39.2 % (37.0-47.0); HGB - HEMOGLOBIN 12.7 g/dL (12.0-16.0); LYMPHOCYTES # (AUTO) 0.9 10^3/uL (1.5-3.5); LYMPHOCYTES % (AUTO) 19.6 %; MEAN CORPUSCULAR HGB CONC 32.4 g/dL (32.0-36.0); MEAN CORPUSCULAR VOLUME 98.7 fL (81.0-99.0); MONOCYTES # (AUTO) 0.5 10^3/uL (0.0-1.0); MONOCYTES % (AUTO) 11.5 %; NEUTROPHILS # (AUTO) 2.9 10^3/uL (1.5-6.6); NEUTROPHILS % (AUTO) 64.3 %; PLT - PLATELET COUNT 200 10^3/uL (130-450); RED BLOOD COUNT 3.97 10^6/uL (4.20-5.40); RED CELL DISTRIBUTION WIDTH 13.4 % (12.0-15.0); WHITE BLOOD COUNT 4.5 x10^3/uL (4.8-10.8)
[2021-03-08 15:33] LABS: ALBUMIN 3.4 g/dL (3.2-5.5); ALKALINE PHOSPHATASE 51 IU/L (42-121); ALT ALANINE AMINOTRANSFERASE 20 IU/L (10-60); AST ASPARTATE AMINOTRANSFERASE 20 IU/L (10-42); BILIRUBIN,TOTAL 0.9 mg/dL (0.2-1.0); BUN - BLOOD UREA NITROGEN 25 mg/dL (6-20); CARBON DIOXIDE - CO2 27 mmol/L (21-32); CHLORIDE 106 mmol/L (101-111); CHOL/HDL RATIO 2.9 (<4.4); CHOLESTEROL 123 mg/dL; CREATININE 1.1 mg/dL (0.4-1.0); GFR - MDRD 49 (>89); GLUCOSE 149 mg/dL (70-100); HDL CHOLESTEROL 43 mg/dL; LDL CHOLESTEROL,CALCULATED 65 mg/dL; LDL/HDL RATIO 1.5 (<4.4); POTASSIUM 4.5 mmol/L (3.5-5.0); SODIUM 140 mmol/L (135-145); TOTAL PROTEIN 6.7 g/dL (6.7-8.2); TRIGLYCERIDES 77 mg/dL; VLDL CHOLESTEROL 15 mg/dL
== END 2021-03-08 10:09 | disposition home or self-care (01) ==
LOC: LAB.S 10:08
PROVIDERS: ATTEND Internal Medicine
DX: I11.0 Hypertensive heart disease with heart failure (principal); E78.5 Hyperlipidemia, unspecified; E11.9 Type 2 diabetes mellitus without complications; I50.9 Heart failure, unspecified; Z79.899 Other long term (current) drug therapy; N20.9 Urinary calculus, unspecified
CPT/HCPCS: 36415; 80053; 80061; 83721; 84443; 85025; 85651

== ENCOUNTER 2021-05-25 17:42 | Emergency (ER) | payer MEDICARE, OTHER ==
[2021-05-25 17:50] VITALS: BP 152/77
[2021-05-25] MEDS ORDERED: HYDROcod/ACETAM 5/325 MG TABLET PO STA (18:30)
[2021-05-25] MEDS ORDERED: methocarbamoL 500 MG TABLET PO STA (18:30)
--- NOTE | 2021-05-25 19:46 | XRAY Report ---
PROCEDURE: Sacrum/Coccyx INDICATIONS: fall, sacrum pain TECHNIQUE: 3 views of the sacrum and coccyx acquired. COMPARISON: Spine radiographs 05/24/2019. FINDINGS: Bones: No obvious fracture. No hip dislocation. The SI joints appear symmetric. No suspicious bony l esions. Soft tissues: Visualized bowel gas pattern is normal. No suspicious soft tissue densities. Clips i n the region of the right hip. IMPRESSION: No obvious fracture. If concern for occult fracture consider CT bony pelvis. Reviewed by: Rayshawn Benitez MD on 05/25/2021 7:45 PM PST Approved by: Rayshawn Benitez MD on 05/25/2021 7:45 PM PST Station ID: [id number]
--- NOTE | 2021-05-25 19:57 | ED Physician Documentation ---
History of Present Illness - Stated complaint Stated Complaint: FALL - Chief complaint Chief Complaint: Back Pain - History obtained from History obtained from: Patient - History of Present Illness Timing: How many days ago (3) Pain level max: 7 Pain level now: 5 - Additonal information Additional information: Patient is a 70-year-old female who presents to the emergency department after a ground-level fall 3 days ago. She states that she was walking down stairs when she tripped and spun on a stair rail. She states that she landed on her buttocks. She states no pain initially. Pain has gradually appeared over the past 1 to 2 days. Worse with movement, better with rest. No bowel or bladder incontinence. No dysuria. Took Tylenol without relief. No numbness or tingling. No head, neck, thoracic or lumbar back pain. Review of Systems Constitutional: denies: Fever, Chills Respiratory: denies: Cough GI: denies: Vomiting, Diarrhea : denies: Dysuria, Frequency, Hesitancy, Incontinent Skin: denies: Rash Musculoskeletal: denies: Neck pain Neurologic: denies: Focal weakness, Numbness, Headache PD PAST MEDICAL HISTORY - Past Medical History Cardiovascular: Congestive heart failure, [place] Respiratory: None Endocrine/Autoimmune: Type 2 diabetes - Past Surgical History Past Surgical History: Yes Cardiovascular: Coronary stent - Present Medications Home Medications: Ambulatory Orders Medication Instructions Recorded Confirmed Aspirin Chewable [St Tera 81 mg PO BID 01/06/14 04/02/20 Aspirin] Carvedilol 12.5 mg PO BID 01/06/14 04/02/20 Cholecalciferol (Vitamin D3) 4,000 unit PO DAILY 01/06/14 04/02/20 [Vitamin D-3] Lisinopril 20 mg PO BID 01/06/14 04/02/20 glipiZIDE [Glucotrol] 10 mg PO DAILY 01/06/14 04/02/20 Furosemide [Lasix] 40 mg PO DAILY 05/09/18 04/02/20 Atorvastatin Calcium 40 mg PO QPM 04/24/19 04/02/20 Ubidecarenone/Vit E Acet [Co Q-10 1 each PO DAILY 04/24/19 04/02/20 100 mg Softgel] Blood Ketone Glucose Monitor 1 kit .ROUTE UD 04/02/20 04/02/20 [Precision Xtra Ketone-Glucose] Multivitamin [Multiple Vitamins] 1 tab PO DAILY 04/02/20 04/02/20 Semaglutide [Ozempic] 0.25 - 0.5 mg .ROUTE UD 04/02/20 04/02/20 HYDROcod/ACETAM 5/325 [[place] 5/325] 1 - 2 ea PO Q6H PRN #14 tablet 05/25/21 methocarbamoL [Robaxin] 500 mg PO Q6H PRN #20 tablet 05/25/21 - Allergies Allergies/Adverse Reactions: Allergies Allergy/AdvReac Type Severity Reaction Status Date / Time amoxicillin [Amoxicillin] Allergy Unknown Headache Verified 05/25/21 17:50 amoxapine [Amoxapine] Allergy Headache Verified 05/25/21 17:50 - Social History Does the pt smoke?: No Smoking Status: Never smoker Does the pt drink ETOH?: No Does the pt have substance abuse?: No - Immunizations Immunizations are current?: Yes PD ED PE NORMAL - Vitals Vital signs reviewed: Yes - General General: Alert and oriented X 3, No acute distress - HEENT HEENT: Moist mucous membranes - Neck Neck: Supple, no meningeal sign - Cardiac Cardiac: RRR - Respiratory Respiratory: No respiratory distress, Clear bilaterally - Abdomen Abdomen: Soft, Non tender, Non distended - Back Back: No spinal TTP, Other (No midline tenderness over the thoracic or lumbar spines. She is tender to palpation over the left SI joint. No swelling. No bruising. Neurovascular intact) - Derm Derm: Warm and dry - Extremities Extremities: No calf tenderness / cord - Neuro Neuro: Alert and oriented X 3, No motor deficit, No sensory deficit, Other (Normal bilateral lower extremity patellar and ankle jerk reflexes. Normal great toe extension bilaterally. no saddle anesthesia) - Psych Psych: Normal mood, Normal affect Results - Vitals Vitals: Vital Signs - 24 hr 05/25/21 17:47 Temperature 36.4 C L Heart Rate 72 Respiratory 16 Rate Blood Pressure 152/77 H O2 Saturation 94 Oxygen O2 Source Room air - Rads (name of study) Sacrum x-ray Radiology: Final report received, EMP read contemporaneously, See rad report (No acute abnormality, CT could be considered) PD MEDICAL DECISION MAKING - ED course Complexity details: reviewed results, re-evaluated patient, considered different ial, d/w patient ED course: 70-year-old female with back pain that is developed gradually after a fall. No acute findings on x-ray. We did discuss a pelvic CT, patient would like to hold that at this time and see if she improves on medications. Feels better after pain medication and muscle relaxants here. Likely soft tissue injury, but could be sacral insufficiency fractures as well. No acute neurological compromise. No evidence of cauda equina. No lumbar or thoracic spine pain or tenderness. Patient counseled regarding signs and symptoms for which I believe and urgent re-evaluation would be necessary. Patient with good understanding of and agreement to plan and is comfortable going home at this time This document was made in part using voice recognition software. While efforts are made to proofread this document, sound alike and grammatical errors may occur. I am prescribing a short course of short-acting opioid pain medication for this patient. I have reviewed the patients [employer] and no concerning findings were noted. I have discussed that the opioids are for short term therapy only, and will not be refilled from the ED. Departure - Departure Disposition: 01 Home, Self Care Clinical Impression: Back muscle spasm, Paresthesia Condition: Good Instructions: ED Low Back Pain Injury, ED Paraesthesias Follow-Up: Keli Alaniz MD [Primary Care Provider] - Within 1 week Prescriptions: HYDROcod/ACETAM 5/325 [[place] 5/325] 1 - 2 ea PO Q6H PRN #14 tablet PRN Reason: Pain methocarbamoL [Robaxin] 500 mg PO Q6H PRN #20 tablet PRN Reason: muscle spasm Comments: Please follow-up with your doctor for further care. If you are still having pain in 1 week, a CT scan of your pelvis should be considered to rule out any small sacral fractures. Your prescriptions were sent to [facility]. It is recommended that you see a neurologist for your paresthesias. I am prescribing a short course of narcotic pain medication for you. These are potentially dangerous and addictive medications that should be used carefully. These medications may constipate you. Take an asef-gzo-amzelgk stool softener (docusate) twice daily with plenty of water while taking these medications. If you go 24 hours without a bowel movement, take ktte-gxy-midmotg miralax, per package instructions. Do not drink or drive while taking these medications. If you received narcotic or sedating medications while in the emergency department, do not drive for 24 hours. Store this medication in a safe, secure place and out of reach of children. It is a violation of federal law to give or sell this medication to another person or to use in a manner other than prescribed. The ED will not refill narcotic prescriptions, including prescriptions lost or stolen. To dispose of unwanted medications: 1. [facility] at [address] in [place] has a medication drop box. They accept prescription medications (in pill form) Sunday through Sunday 9:00 a.m. to 5:00 p.m. 2. The [facility] [employer] accepts prescription medications (in pill form only) for disposal year round. Call for more information. 3. Contact the [facility] for the next [facility] sponsored prescription drug collection event. , [phone], or [phone]; Discharge Date/Time: 05/25/21 20:23
[2021-05-25] MEDS ORDERED: oxyCODONE 5 MG TABLET PO STA (20:14)
== END 2021-05-25 20:23 | disposition home or self-care (01) ==
LOC: ED 17:42
DX: M62.830 Muscle spasm of back (principal); R20.2 Paresthesia of skin; M53.3 Sacrococcygeal disorders, not elsewhere classified; W10.9XXA Fall (on) (from) unspecified stairs and steps, initial encounter; E11.9 Type 2 diabetes mellitus without complications; Z79.84 Long term (current) use of oral hypoglycemic drugs; Z79.82 Long term (current) use of aspirin
CPT/HCPCS: 72220; 99283; 99284; A9270

== ENCOUNTER 2021-07-27 15:01 | Outpatient (CLI) | payer MEDICARE, OTHER ==
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
== END 2021-07-27 15:02 | disposition home or self-care (01) ==
LOC: DI.S 15:01
PROVIDERS: ATTEND Internal Medicine
DX: S23.41XA Sprain of ribs, initial encounter (principal); J98.11 Atelectasis

== ENCOUNTER 2021-11-17 10:26 | Outpatient (CLI) | payer MEDICARE, OTHER ==
--- NOTE | 2021-11-17 17:06 | XRAY Report ---
PROCEDURE: Cervical Spine 4 View INDICATIONS: CERVICALGIA TECHNIQUE: 4 view(s) of the cervical spine were acquired. COMPARISON: None. FINDINGS: Bones: No fractures or dislocations to the T1 level. The lateral masses of C1 appear intact on the odontoid view. No suspicious bony lesions. Moderate C5-C6 and C6-7 C7 degenerative disc disease. Mi ld C4-C5 and C7-T1 degenerative disc disease. Mild C3-C4, C4-C5, C5-C6, C6-C7 and C7-T1 facet arthrop athy. Soft tissues: No prevertebral soft tissue swelling. IMPRESSION: 1. Multilevel degenerative disc disease. 2. Multilevel facet arthropathy. 3. No fracture. No acute osseous lesion. If there is continued clinical concern for pathology, then M RI should be considered for further evaluation. Reviewed by: Atiya Lee MD, PhD on 11/17/2021 5:05 PM PDT Approved by: Atiya Lee MD, PhD on 11/17/2021 5:05 PM PDT Station ID: [id number]
== END 2021-11-17 10:27 | disposition home or self-care (01) ==
LOC: DI.S 10:26
PROVIDERS: ATTEND Internal Medicine
DX: M47.812 Spondylosis without myelopathy or radiculopathy, cervical region (principal); M50.321 Other cervical disc degeneration at C4-C5 level

== ENCOUNTER 2022-04-03 08:00 | Outpatient (CLI) | payer MEDICARE, OTHER ==
[2022-04-03 14:38] LABS: BASOPHILS % (AUTO) 0.8 %; EOSINOPHILS # (AUTO) 0.2 10^3/uL (0.0-0.7); EOSINOPHILS % (AUTO) 4.7 %; LYMPHOCYTES # (AUTO) 1.1 10^3/uL (1.5-3.5); LYMPHOCYTES % (AUTO) 22.7 %; MEAN CORPUSCULAR HEMOGLOBIN 31.4 pg (27.0-31.0); MEAN CORPUSCULAR HGB CONC 31.4 g/dL (32.0-36.0); MONOCYTES # (AUTO) 0.6 10^3/uL (0.0-1.0); MONOCYTES % (AUTO) 11.5 %; NEUTROPHILS # (AUTO) 2.9 10^3/uL (1.5-6.6); NEUTROPHILS % (AUTO) 59.9 %; PLT - PLATELET COUNT 238 10^3/uL (130-450); WHITE BLOOD COUNT 4.9 x10^3/uL (4.8-10.8)
[2022-04-03 14:44] LABS: BILIRUBIN,URINE NEGATIVE (NEGATIVE); GLUCOSE, URINE (UA) NEGATIVE (NEGATIVE); KETONES,URINE (UA) NEGATIVE (NEGATIVE); LEUKOCYTE ESTERASE, URINE SMALL (NEGATIVE); NITRITE,URINE NEGATIVE (NEGATIVE); OCCULT BLOOD,URINE MODERATE (NEGATIVE); PROTEIN,URINE 30 mg/dL (NEGATIVE); UROBILINOGEN,URINE 0.2 (NORMAL) E.U./dL (NORMAL)
[2022-04-03 14:56] LABS: BACTERIA,URINE Few /HPF (None Seen); CLARITY,URINE CLOUDY (CLEAR); SQUAMOUS EPITHELIAL CELL,UR MOD Squamous (<= Few)
[2022-04-03 15:04] LABS: ALBUMIN 3.3 g/dL (3.2-5.5); ALBUMIN/GLOBULIN RATIO 0.9 (1.0-2.2); ALKALINE PHOSPHATASE 60 IU/L (42-121); ALT ALANINE AMINOTRANSFERASE 17 IU/L (10-60); AST ASPARTATE AMINOTRANSFERASE 18 IU/L (10-42); BILIRUBIN,TOTAL 0.6 mg/dL (0.2-1.0); BUN - BLOOD UREA NITROGEN 24 mg/dL (6-20); CALCIUM 9.1 mg/dL (8.5-10.3); CARBON DIOXIDE - CO2 28 mmol/L (21-32); CHLORIDE 106 mmol/L (101-111); CHOL/HDL RATIO 3.5 (<4.4); CHOLESTEROL 131 mg/dL; CREATININE 1.2 mg/dL (0.4-1.0); GFR - MDRD 44 (>89); GLUCOSE 175 mg/dL (70-100); HDL CHOLESTEROL 37 mg/dL; LDL CHOLESTEROL,CALCULATED 69 mg/dL; LDL/HDL RATIO 1.9 (<4.4); MAGNESIUM 2.1 mg/dL (1.7-2.8); POTASSIUM 4.7 mmol/L (3.5-5.0); SODIUM 140 mmol/L (135-145); TOTAL PROTEIN 6.8 g/dL (6.7-8.2); TRIGLYCERIDES 125 mg/dL; VLDL CHOLESTEROL 25 mg/dL
[2022-04-03 19:56] LABS: ESTIMATED AVERAGE GLUCOSE 160 mg/dL (70-100); HEMOGLOBIN A1c% 7.2 % (4.27-6.07)
== END 2022-04-03 23:59 | disposition home or self-care (01) ==
LOC: LAB.S 08:00
PROVIDERS: ATTEND Internal Medicine
DX: I11.0 Hypertensive heart disease with heart failure (principal); I50.9 Heart failure, unspecified; E11.9 Type 2 diabetes mellitus without complications; Z79.899 Other long term (current) drug therapy; D50.9 Iron deficiency anemia, unspecified
CPT/HCPCS: 36415; 80053; 80061; 81001; 82607; 83036; 83721; 83735; 84443; 85025

== ENCOUNTER 2022-04-17 05:00 | Outpatient (CLI) | payer MEDICARE, OTHER | END 2022-04-17 05:01 | disposition EMS.NT | LOC: EMS 05:00 | DX: R53.1 Weakness (principal) ==

== ENCOUNTER 2022-05-04 10:55 | Outpatient (CLI) | payer MEDICARE, OTHER ==
--- NOTE | 2022-05-04 14:17 | XRAY Report ---
PROCEDURE: Foot 3 View RT INDICATIONS: FOOT PAIN TECHNIQUE: 3 views of the foot were acquired. COMPARISON: None. FINDINGS: Bones: No fractures or dislocations. Small plantar calcaneal spur. Mild degenerative changes in the midfoot. Bones appear osteopenic. No suspicious bony lesions. Soft tissues: No tibiotalar joint effusion. Achilles tendon appears normal. Suspect trace distal va scular calcifications. IMPRESSION: No fracture identified. Mild degenerative change appreciated. Bones appear osteopenic. Reviewed by: Rayshawn Benitez MD on 05/04/2022 2:15 PM PDT Approved by: Rayshawn Benitez MD on 05/04/2022 2:15 PM PDT Station ID: [id number]
== END 2022-05-04 10:56 | disposition home or self-care (01) ==
LOC: DI 10:55
PROVIDERS: ATTEND Internal Medicine
DX: M19.071 Primary osteoarthritis, right ankle and foot (principal)

== ENCOUNTER 2022-05-30 13:13 | Outpatient (CLI) | payer MEDICARE, OTHER ==
--- NOTE | 2022-05-30 17:13 | XRAY Report ---
PROCEDURE: Chest 2 View X-Ray INDICATIONS: COUGH TECHNIQUE: 2 views of the chest were acquired. COMPARISON: None FINDINGS: Surgical changes and devices: None. Lungs and pleura: No pleural effusions or pneumothorax. Lungs are clear. Mediastinum: Mediastinal contours are normal. Heart size is enlarged. Bones and chest wall: No suspicious bony abnormalities. Soft tissues appear unremarkable. IMPRESSION: No acute cardiopulmonary abnormality. Reviewed by: Matt Kirk on 05/30/2022 5:12 PM [facility] Approved by: Matt Kirk on 05/30/2022 5:12 PM [facility] Station ID: [id number]
== END 2022-05-30 13:14 | disposition home or self-care (01) ==
LOC: DI.S 13:13
PROVIDERS: ATTEND Internal Medicine
DX: R05.9 Cough, unspecified (principal)

== ENCOUNTER 2022-06-09 08:00 | Outpatient (CLI) | payer MEDICARE, OTHER ==
--- NOTE | 2022-06-09 11:01 | XRAY Report ---
PROCEDURE: Wrist 4 View LT INDICATIONS: LEFT WRIST PAIN/FALL TECHNIQUE: 4 views of the wrist were acquired. COMPARISON: None FINDINGS: Bones: There is slightly impacted and comminuted distal radial fracture with possible fracture line e xtending to radiocarpal joint space. No other fracture or dislocation. Mild osteopenia is seen. Osteo arthritic changes throughout wrist joints also noted. No suspicious bony lesions. Scaphoid view: Scaphoid is grossly intact. Soft tissues: No suspicious soft tissue calcifications. IMPRESSION: Acute impacted fracture of distal radius as above. Reviewed by: Rubin Sanches MD on 06/09/2022 11:00 AM [facility] Approved by: Rubin Sanches MD on 06/09/2022 11:00 AM PST Station ID: [id number]
== END 2022-06-09 23:59 | disposition home or self-care (01) ==
LOC: DI.S 08:00
PROVIDERS: ATTEND Physician Assistant Medical
DX: S52.502A Unspecified fracture of the lower end of left radius, initial encounter for closed fracture (principal)

== ENCOUNTER 2022-11-22 11:20 | Outpatient (CLI) | payer MEDICARE, OTHER ==
[2022-11-22 14:24] LABS: EOSINOPHILS # (AUTO) 0.2 10^3/uL (0.0-0.7); EOSINOPHILS % (AUTO) 3.9 %; HCT - HEMATOCRIT 36.6 % (37.0-47.0); HGB - HEMOGLOBIN 11.2 g/dL (12.0-16.0); LYMPHOCYTES # (AUTO) 0.8 10^3/uL (1.5-3.5); LYMPHOCYTES % (AUTO) 21.7 %; MEAN CORPUSCULAR HEMOGLOBIN 30.5 pg (27.0-31.0); MEAN CORPUSCULAR HGB CONC 30.6 g/dL (32.0-36.0); MEAN CORPUSCULAR VOLUME 99.7 fL (81.0-99.0); MONOCYTES # (AUTO) 0.6 10^3/uL (0.0-1.0); MONOCYTES % (AUTO) 14.9 %; NEUTROPHILS # (AUTO) 2.2 10^3/uL (1.5-6.6); NEUTROPHILS % (AUTO) 58.2 %; PLT - PLATELET COUNT 232 10^3/uL (130-450); RED BLOOD COUNT 3.67 10^6/uL (4.20-5.40); RED CELL DISTRIBUTION WIDTH 14.4 % (12.0-15.0); WHITE BLOOD COUNT 3.8 x10^3/uL (4.8-10.8)
[2022-11-22 15:26] LABS: ALBUMIN 3.3 g/dL (3.2-5.5); ALBUMIN/GLOBULIN RATIO 0.9 (1.0-2.2); ALKALINE PHOSPHATASE 53 IU/L (42-121); ALT ALANINE AMINOTRANSFERASE 13 IU/L (10-60); AST ASPARTATE AMINOTRANSFERASE 19 IU/L (10-42); BILIRUBIN,TOTAL 0.5 mg/dL (0.2-1.0); BUN - BLOOD UREA NITROGEN 17 mg/dL (6-20); CALCIUM 8.9 mg/dL (8.5-10.3); CARBON DIOXIDE - CO2 30 mmol/L (21-32); CHLORIDE 109 mmol/L (101-111); CHOL/HDL RATIO 3.1 (<4.4); CHOLESTEROL 122 mg/dL; CREATININE 1.1 mg/dL (0.4-1.0); GFR - MDRD 49 (>89); GLUCOSE 122 mg/dL (70-100); HDL CHOLESTEROL 40 mg/dL; LDL CHOLESTEROL,CALCULATED 64 mg/dL; LDL/HDL RATIO 1.6 (<4.4); MAGNESIUM 2.2 mg/dL (1.7-2.8); POTASSIUM 4.4 mmol/L (3.5-5.0); SODIUM 143 mmol/L (135-145); TOTAL PROTEIN 7.1 g/dL (6.7-8.2); TRIGLYCERIDES 90 mg/dL; VLDL CHOLESTEROL 18 mg/dL
[2022-11-22 17:47] LABS: ESTIMATED AVERAGE GLUCOSE 171 mg/dL (70-100); HEMOGLOBIN A1c% 7.6 % (4.27-6.07)
== END 2022-11-22 11:21 | disposition home or self-care (01) ==
LOC: LAB.S 11:20
PROVIDERS: ATTEND Internal Medicine
DX: I10 Essential (primary) hypertension (principal); E11.9 Type 2 diabetes mellitus without complications; I50.9 Heart failure, unspecified; E78.5 Hyperlipidemia, unspecified; D50.9 Iron deficiency anemia, unspecified; Z79.899 Other long term (current) drug therapy
CPT/HCPCS: 36415; 80053; 80061; 83036; 83721; 83735; 83880; 85025

== ENCOUNTER 2023-02-01 14:00 | Outpatient (CLI) | payer MEDICARE, OTHER | END 2023-02-01 14:01 | disposition critical access hospital (66) | LOC: EMS 14:00 | DX: S00.01XA Abrasion of scalp, initial encounter (principal); R51.9 Headache, unspecified; W05.0XXA Fall from non-moving wheelchair, initial encounter; Y92.480 Sidewalk as the place of occurrence of the external cause | CPT/HCPCS: A0425; A0429 ==

== ENCOUNTER 2023-02-01 14:22 | Emergency (ER) | payer MEDICARE, OTHER ==
[2023-02-01] MEDS ORDERED: ACETAMINOPHEN 500 MG TABLET PO STA (14:28)
--- NOTE | 2023-02-01 14:29 | ED Physician Documentation ---
History of Present Illness - Stated complaint Stated Complaint: GLF/HEAD INJURY - Chief complaint Chief Complaint: General - History obtained from History obtained from: Patient - Additonal information Additional information: 72-year-old woman with history of coronary artery disease, diabetes with neuropathy who is in a wheelchair because of her neuropathy was on her way into her doctor's office for routine yearly appointment and her wheelchair fell backwards on the ramp and she hit the back of her head with a loud noise on the ramp. She has a mild to moderate headache. There was no loss of consciousness. She has no other injuries. PD PAST MEDICAL HISTORY - Past Medical History Cardiovascular: Congestive heart failure, [place] Respiratory: None Endocrine/Autoimmune: Type 2 diabetes - Past Surgical History Past Surgical History: Yes Cardiovascular: Coronary stent - Present Medications Home Medications: Ambulatory Orders Medication Instructions Recorded Confirmed Aspirin Chewable [St Tera 81 mg PO BID 01/06/14 04/02/20 Aspirin] Carvedilol 12.5 mg PO BID 01/06/14 04/02/20 Cholecalciferol (Vitamin D3) 4,000 unit PO DAILY 01/06/14 04/02/20 [Vitamin D-3] Lisinopril 20 mg PO BID 01/06/14 04/02/20 glipiZIDE [Glucotrol] 10 mg PO DAILY 01/06/14 04/02/20 Furosemide [Lasix] 40 mg PO DAILY 05/09/18 04/02/20 Atorvastatin Calcium 40 mg PO QPM 04/24/19 04/02/20 Ubidecarenone/Vit E Acet [Co Q-10 1 each PO DAILY 04/24/19 04/02/20 100 mg Softgel] Blood Ketone Glucose Monitor 1 kit .ROUTE UD 04/02/20 04/02/20 [Precision Xtra Ketone-Glucose] Multivitamin [Multiple Vitamins] 1 tab PO DAILY 04/02/20 04/02/20 Semaglutide [Ozempic] 0.25 - 0.5 mg .ROUTE UD 04/02/20 04/02/20 HYDROcod/ACETAM 5/325 [[place] 5/325] 1 - 2 ea PO Q6H PRN #14 tablet 05/25/21 methocarbamoL [Robaxin] 500 mg PO Q6H PRN #20 tablet 05/25/21 - Allergies Allergies/Adverse Reactions: Allergies Allergy/AdvReac Type Severity Reaction Status Date / Time amoxicillin [Amoxicillin] Allergy Unknown Headache Verified 02/01/23 14:26 amoxapine [Amoxapine] Allergy Headache Verified 02/01/23 14:26 - Social History Does the pt smoke?: No Smoking Status: Never smoker Does the pt drink ETOH?: No Does the pt have substance abuse?: No - Immunizations Immunizations are current?: Yes PD ED PE NORMAL - Vitals Vital signs reviewed: Yes - General General: Alert and oriented X 3, No acute distress - HEENT HEENT: PERRL, EOMI, Other (There is a contusion with overlying abrasion measuring about 6 cm in diameter on the occiput.) - Neck Neck: Supple, no meningeal sign, No bony TTP - Cardiac Cardiac: RRR, Other (Subtle systolic murmur which she says her physician is already aware of.) - Respiratory Respiratory: No respiratory distress, Clear bilaterally - Abdomen Abdomen: Normal bowel sounds, Soft, Non tender - Extremities Extremities: No edema, No calf tenderness / cord - Neuro Neuro: Alert and oriented X 3, Normal speech Eye Opening: Spontaneous Motor: Obeys Commands Verbal: Oriented GCS Score: 15 Results - Vitals Vitals: Vital Signs - 24 hr 02/01/23 02/01/23 14:21 15:44 Temperature 36.4 C L Heart Rate 82 74 Respiratory 16 18 Rate Blood Pressure 160/69 H 149/60 H O2 Saturation 97 99 Oxygen O2 Source Room air - Labs Labs: Laboratory Tests 02/01/23 02/01/23 14:36 14:36 WBC 4.7 L RBC 3.31 L Hgb 10.4 L Hct 33.1 L MCV 100.0 H MCH 31.4 H MCHC 31.4 L RDW 14.2 Plt Count 201 MPV 9.0 Neut # (Auto) 3.3 Lymph # (Auto) 0.7 L [place] # (Auto) 0.5 Eos # (Auto) 0.2 Baso # (Auto) 0.0 Absolute Nucleated RBC 0.00 Nucleated RBC % 0.0 Sodium 140 Potassium 4.5 Chloride 108 Carbon Dioxide 29 Anion Gap 3.0 L BUN 20 Creatinine 1.0 Estimated GFR (MDRD) 54 L Glucose 205 H Calcium 8.9 Total Bilirubin 0.4 AST 12 ALT 7 L Alkaline Phosphatase 56 Total Protein 7.3 Albumin 3.3 Globulin 4.0 Albumin/Globulin Ratio 0.8 L Triglycerides 128 Cholesterol 107 LDL Cholesterol, Calc 49 VLDL Cholesterol 26 HDL Cholesterol 32 L LDL/HDL Ratio 1.5 Cholesterol/HDL Ratio 3.3 - Rads (name of study) CT of the head is negative for acute trauma findings. Relevant Findings:: Final report received, EMP independent interpretation of test CT of the cervical spine was negative. Relevant Findings:: Final report received, EMP independent interpretation of test PD Medical Decision Making - ED course ED course: 72-year-old woman was going up a ramp in her wheelchair and fell backwards hitting the back of her head on the ramp with a large bag. She appears well but does have a hematoma in the back of her head. She has not been able to seen her doctor. CT of the head and see vertical spine were without trauma. She has a chronic macrocytic anemia. Blood sugar 205 on CMP otherwise lipid panel and CMP were unremarkable. Departure - Departure Disposition: 01 Home, Self Care Clinical Impression: Diabetes Head injury Qualifiers: Encounter type: initial encounter Qualified Code(s): S09.90XA - Unspecified injury of head, initial encounter Fall from wheelchair Qualifiers: Encounter type: initial encounter Qualified Code(s): W05.0XXA - Fall from non- moving wheelchair, initial encounter Condition: Good Record reviewed to determine appropriate education?: Yes Instructions: ED Head Injury Closed Comments: The only abnormality on your labs that are back so far are that you have a chronic anemia. It is about the same as prior values. And your blood sugar was 205. Your hemoglobin A1c is pending on discharge, but Dr. Keli Alaniz can request it from our lab. You should follow-up with Dr. Keli Alaniz for rescheduling of your routine appointments. Return for new or worsening symptoms. You can sleep through the night without anyone checking on you. Discharge Date/Time: 02/01/23 15:44
[2023-02-01 14:42] LABS: BASOPHILS % (AUTO) 0.4 %; EOSINOPHILS # (AUTO) 0.2 10^3/uL (0.0-0.7); EOSINOPHILS % (AUTO) 3.9 %; HCT - HEMATOCRIT 33.1 % (37.0-47.0); HGB - HEMOGLOBIN 10.4 g/dL (12.0-16.0); LYMPHOCYTES # (AUTO) 0.7 10^3/uL (1.5-3.5); MEAN CORPUSCULAR HEMOGLOBIN 31.4 pg (27.0-31.0); MEAN CORPUSCULAR HGB CONC 31.4 g/dL (32.0-36.0); MONOCYTES # (AUTO) 0.5 10^3/uL (0.0-1.0); MONOCYTES % (AUTO) 10.7 %; NEUTROPHILS # (AUTO) 3.3 10^3/uL (1.5-6.6); NEUTROPHILS % (AUTO) 69.8 %; PLT - PLATELET COUNT 201 10^3/uL (130-450); RED BLOOD COUNT 3.31 10^6/uL (4.20-5.40); RED CELL DISTRIBUTION WIDTH 14.2 % (12.0-15.0); WHITE BLOOD COUNT 4.7 x10^3/uL (4.8-10.8)
--- NOTE | 2023-02-01 15:13 | CT Report ---
PROCEDURE: HEAD WO INDICATIONS: head inj TECHNIQUE: Noncontrast 4.5 mm thick angled axial sections acquired from the foramen magnum to the vertex. For r adiation dose reduction, the following was used: automated exposure control, adjustment of mA and/or kV according to patient size. COMPARISON: 03/14/2019 FINDINGS: Image quality: Excellent. CSF spaces: Basal cisterns are patent. No extra-axial fluid collections. Ventricles are normal in size and shape. Brain: No midline shift. No intracranial masses or hemorrhage. Hayes-white matter interface is norm al. Intracranial carotid calcifications. Age-related volume loss and mild small vessel ischemic dunlap e. 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 Skull and face: Left parietal subgaleal hematoma. Calvarium and visualized facial bones are intact, without suspicious lesions. Sinuses: Visualized sinuses and mastoids are clear. IMPRESSION: No acute intracranial pathology Reviewed by: Carl Haley MD on 02/01/2023 3:12 PM PDT Approved by: Carl Haley MD on 02/01/2023 3:12 PM PDT Station ID: [id number]
--- NOTE | 2023-02-01 15:15 | CT Report ---
PROCEDURE: CERVICAL SPINE WO INDICATIONS: head inj TECHNIQUE: Noncontrast 3 mm thick sections acquired from the skull base to the T4 level. Sagittal and coronal r eformats were then constructed. For radiation dose reduction, the following was used: automated exp osure control, adjustment of mA and/or kV according to patient size. COMPARISON: None. FINDINGS: Image quality: Excellent. Bones: No fractures or dislocations. Visualized superior ribs are intact. Diffuse cervical spondyl itic change. Multilevel facet arthropathy and uncovertebral joint hypertrophy. Soft tissues: Prevertebral soft tissues are normal in thickness. No paravertebral hematomas. No ap ical pneumothoraces. IMPRESSION: No acute cervical fracture or dislocation. Reviewed by: Carl Haley MD on 02/01/2023 3:13 PM PDT Approved by: Carl Halye MD on 02/01/2023 3:13 PM PDT Station ID: [id number]
[2023-02-01 15:18] LABS: ALBUMIN 3.3 g/dL (3.2-5.5); ALBUMIN/GLOBULIN RATIO 0.8 (1.0-2.2); ALKALINE PHOSPHATASE 56 IU/L (42-121); ALT ALANINE AMINOTRANSFERASE 7 IU/L (10-60); AST ASPARTATE AMINOTRANSFERASE 12 IU/L (10-42); BILIRUBIN,TOTAL 0.4 mg/dL (0.2-1.0); BUN - BLOOD UREA NITROGEN 20 mg/dL (6-20); CALCIUM 8.9 mg/dL (8.5-10.3); CARBON DIOXIDE - CO2 29 mmol/L (21-32); CHLORIDE 108 mmol/L (101-111); CHOL/HDL RATIO 3.3 (<4.4); CHOLESTEROL 107 mg/dL; GFR - MDRD 54 (>89); GLUCOSE 205 mg/dL (74-104); HDL CHOLESTEROL 32 mg/dL; LDL CHOLESTEROL,CALCULATED 49 mg/dL; LDL/HDL RATIO 1.5 (<4.4); POTASSIUM 4.5 mmol/L (3.5-4.5); SODIUM 140 mmol/L (135-145); TOTAL PROTEIN 7.3 g/dL (6.4-8.9); TRIGLYCERIDES 128 mg/dL (48-352); VLDL CHOLESTEROL 26 mg/dL
[2023-02-01 15:50] VITALS: BP 149/60
[2023-02-01 21:00] LABS: ESTIMATED AVERAGE GLUCOSE 160 mg/dL (70-100); HEMOGLOBIN A1c% 7.2 % (4.27-6.07)
== END 2023-02-01 15:44 | disposition home or self-care (01) ==
LOC: EDUNIT# → ED 14:22
DX: S09.90XA Unspecified injury of head, initial encounter (principal); S00.01XA Abrasion of scalp, initial encounter; V09.1XXA Pedestrian injured in unspecified nontraffic accident, initial encounter; Y93.89 Activity, other specified; Y92.89 Other specified places as the place of occurrence of the external cause; E11.9 Type 2 diabetes mellitus without complications; Z79.84 Long term (current) use of oral hypoglycemic drugs
CPT/HCPCS: 36415; 70450; 72125; 80053; 80061; 83036; 85025; 99283; 99284; A9270; 83721

== ENCOUNTER 2023-03-25 15:09 | Outpatient (CLI) | payer MEDICARE, OTHER | END 2023-03-25 15:10 | disposition short-term general hospital (02) | LOC: EMS 15:09 | DX: R53.81 Other malaise (principal); R41.0 Disorientation, unspecified; R05.9 Cough, unspecified; R06.02 Shortness of breath; R11.0 Nausea; R60.0 Localized edema; R00.0 Tachycardia, unspecified | CPT/HCPCS: A0425; A0427 ==